=== PATIENT | male | born 1980 | race Caucasian/White ===

== ENCOUNTER 2017-06-25 10:49 | Emergency (ER) | payer SELFPAY ==
[~2017-06-25] VITALS: Ht 170.2 cm; Wt 80.0 kg
[2017-06-25 10:54] VITALS: BP 150/80
[2017-06-25] MEDS ORDERED: BACITRACIN ZINC OINT UDPKT TOP ONE (12:00)
[2017-06-25] MEDS ORDERED: TETANUS, DIPHTHERIA, PERTUSSIS VAC/PF 0.5ML (>7YR OLD) IM ONE (12:00)
[2017-06-25] MEDS ORDERED: HYDROCODONE/ACETAMINOPHEN 5/325MG TABLET PO ONE (12:00)
[2017-06-25] MEDS ORDERED: LIDOCAINE HCL 1% 20ML VIAL (Pyxis) INJ MC ONE (12:00)
== END 2017-06-25 15:06 | disposition home or self-care (01) ==
LOC: ER 11:06
DX: S61.412A Laceration without foreign body of left hand, initial encounter (principal); W25.XXXA Contact with sharp glass, initial encounter; Y93.89 Activity, other specified; Y92.89 Other specified places as the place of occurrence of the external cause; Y99.8 Other external cause status
CPT/HCPCS: 12004; 73130; 90471; 90715; 99284; J3490; X7700; Z7610